=== PATIENT | female | born 1965 | race Two or more races ===

== ENCOUNTER 2016-06-05 16:26 | Emergency (ER) | payer MEDICAID ==
[~2016-06-05] VITALS: Ht 157.5 cm; Wt 104.3 kg
[2016-06-05] MEDS ORDERED: diphenhydrAMINE HCL 50 MG/ML VIAL IV ONE (17:30)
[2016-06-05] MEDS ORDERED: DEXAMETHASONE SOD PHOSPHATE 10 MG/ML VIAL IV ONE (17:30)
[2016-06-05] MEDS ORDERED: METOCLOPRAMIDE HCL 10 MG/2 ML VIAL IV ONE (17:30)
[2016-06-05] MEDS ORDERED: IV NS 0.9% 500 ML BAG IV ONE (17:30)
[2016-06-05] MEDS ORDERED: diphenhydrAMINE HCL 50 MG/ML VIAL ONE (17:31)
[2016-06-05] MEDS ORDERED: DEXAMETHASONE SOD PHOSPHATE 10 MG/ML VIAL ONE (17:31)
[2016-06-05] MEDS ORDERED: METOCLOPRAMIDE HCL 10 MG/2 ML VIAL ONE (17:31)
[2016-06-05] MEDS ORDERED: IV NS 0.9% 500 ML IV ONE (17:32)
[2016-06-05 18:13] VITALS: BP 130/88
== END 2016-06-05 18:20 | disposition home or self-care (01) ==
LOC: ER 16:33
DX: R51 Headache (principal); R11.0 Nausea; I10 Essential (primary) hypertension; E11.9 Type 2 diabetes mellitus without complications; Z88.2 Allergy status to sulfonamides; Z88.1 Allergy status to other antibiotic agents
CPT/HCPCS: 70450-TC; A4606; J1100; J1200; J2765; J7040; Z7610

== ENCOUNTER 2017-01-13 15:55 | Emergency (ER) | payer MEDICAID ==
[~2017-01-13] VITALS: Ht 165.1 cm; Wt 105.2 kg
[2017-01-13 15:55] VITALS: BP 144/86
== END 2017-01-13 16:58 | disposition home or self-care (01) ==
LOC: ER 15:57
DX: R51 Headache (principal); E11.9 Type 2 diabetes mellitus without complications; I10 Essential (primary) hypertension; Z79.4 Long term (current) use of insulin; Z88.2 Allergy status to sulfonamides
CPT/HCPCS: 99283; A4606; Z7610